=== PATIENT | female | born 1995 | race Two or more races ===

== ENCOUNTER 2019-09-03 15:56 | Inpatient (IN) | payer SELFPAY ==
[~2019-09-03] VITALS: Ht 165.1 cm; Wt 72.6 kg
[2019-09-03] MEDS ORDERED: DINOPROSTONE 10 MG SUPP.VAG VG ONE (16:30)
[2019-09-03] MEDS ORDERED: 0.9 % SODIUM CHLORIDE 10 ML DISP.SYRIN. IV PRN (16:30)
[2019-09-03] MEDS ORDERED: fentaNYL PF VIAL 100 MCG/2 ML VIAL IV PRN ×2 (16:30)
[2019-09-03] MEDS ORDERED: LIDOCAINE 1% PF 30 ML VIAL. INJ PRN (16:30)
[2019-09-03] MEDS ORDERED: NALBUPHINE 10 MG/ML AMPUL. IV PRN (16:30)
[2019-09-03] MEDS ORDERED: OXYTOCIN 30 UNIT/500 ML PREMIX 500 ML IV PRN ×2 (16:30)
[2019-09-03] MEDS ORDERED: TERBUTALINE 1 MG/ML VIAL. SQ PRN (16:30)
[2019-09-03] MEDS ORDERED: BUTORPHANOL 2 MG/ML VIAL. IV PRN ×2 (16:30)
[2019-09-03] MEDS ORDERED: IBUPROFEN 400 MG TABLET. PO PRN (16:30)
[2019-09-03] MEDS: IV RINGERS,LACTATED 1000ML 1,000 ML IV SCH ×2 (17:16→22:26)
[2019-09-03 17:35] LABS: BASO # 0.1 x10^3/uL (0.0-0.2); BASO % 1 % (0-3); EOS # 0.1 x10^3/uL (0.0-0.7); EOS % 2 % (0-3); HEMATOCRIT 36.1 % (36.0-47.0); HEMOGLOBIN 12.8 g/dL (12.0-15.5); LYMPH # 1.7 x10^3/uL (1.0-4.8); LYMPH % 22 % (24-48); MEAN CORPUSCULAR HEMOGLOBIN 32 pg (25-35); MEAN CORPUSCULAR HGB CONC 35 g/dL (31-37); MEAN CORPUSCULAR VOLUME 90 fL (79-100); MONO # 0.5 x10^3/uL (0.0-1.1); MONO % 6 % (0-9); NEUT # 5.5 x10^3/uL (1.8-7.7); NEUT % 70 % (31-73); PLATELET COUNT 210 x10^3/uL (140-400); RED BLOOD COUNT 4.03 x10^6/uL (3.50-5.40); RED CELL DISTRIBUTION WIDTH 13.7 % (11.5-14.5); WHITE BLOOD COUNT 7.9 x10^3/uL (4.0-11.0)
[2019-09-03 18:23] VITALS: BP 117/81
[2019-09-03] MEDS ORDERED: ZOLPIDEM 5 MG TABLET. PO PRN (21:00)
[2019-09-04] MEDS: NALBUPHINE 10 MG/ML AMPUL. IV PRN ×2 (02:14→05:15)
[2019-09-04] MEDS ORDERED: OXYTOCIN PREMIX 30 UNIT/500 ML NS BAG. IV ONE (05:00)
[2019-09-04] MEDS: IV RINGERS,LACTATED 1000ML 1,000 ML IV SCH (06:10)
[2019-09-04] MEDS ORDERED: ROPIVacaine 0.2% PF 10 ML VIAL. ONE ×2 (07:26→08:00)
[2019-09-04] MEDS ORDERED: ROPIVacaine 0.2% IN 0.9%NACL PF 40 MG/20 ML DISP.SYRIN. EPID PRN (08:00)
[2019-09-04] MEDS ORDERED: ONDANSETRON PF 4 MG/2 ML VIAL. IV PRN (08:00)
[2019-09-04] MEDS ORDERED: IV RINGERS,LACTATED 1000ML 1,000 ML IV SCH (08:00)
[2019-09-04] MEDS ORDERED: ePHEDrine PF IN SALINE 50 MG/10 ML SYRINGE. IV PRN (08:00)
[2019-09-04] MEDS ORDERED: NALOXONE 0.4 MG/ML VIAL. IV PRN (08:00)
[2019-09-04] MEDS ORDERED: L&D EPIDURAL SYRINGE 50 ML EPID PRN (08:00)
[2019-09-04] MEDS ORDERED: fentaNYL PF VIAL 100 MCG/2 ML VIAL EPID PRN (08:00)
--- NOTE | 2019-09-04 08:36 | PDOC1 ---
OB - History Hx of Present Care: Good Care Ultrasounds: Normal mid trimester US Obstetrical Complications: Other (Oligohydramnios) Medical Complications: None Past Family/Social History * Past Medical, Surgical, Family and Obstetric Histories reviewed from chart. Rubella: Immune RPR/VDRL: Negative GBS Status: Negative HBsAG: Negative OB - Chief Complaint & HPI Date of Admission: Date of Admission: Sep 03, 2019 at 15:56 Chief Complaint/History : 2 Para: 1 EGA: 40 Reason for admission: induction of labor (oligohydramnios) Admission Nurse Assessment Rev: Yes OB - Admission Exam Physical Exam Vitals: VS - Last 72 Hours, by Label Date Time Temp Pulse Resp B/P (MAP) Pulse Ox O2 Delivery O2 Flow Rate FiO2 09/04/19 05:15 18 09/04/19 02:14 20 Room Air 09/03/19 18:23 98.0 81 18 117/81 (93) Room Air 98.0 HEENT: Normal Heart: Regular Rate Lungs: Clear Abdomen: Gravid, Non tender, Soft Extremities: Edema Reflexes: Normal Cervical Dilatation: 1cm Effacement: 50% Station: -3 Membranes: Intact Heart Rate: Normal Accelerations: Accelerations Present Decelerations: No decelerations Contractions on Admission: >10 Minutes Apart Intensity: Mild Text A: 40 wks IUP Oligohydramnios P: ADmit cervidil, then pitocin induction. JAMISON BYNUM Jr, MD Sep 04, 2019 08:36
--- NOTE | 2019-09-04 08:38 | PDOC ---
VAGINAL DELIVERY DATE DATE: 09/04/19 TIME: 08:37 : 2 Para: 2 EGA: 40 VAGINAL DELIVERY: VTX VACCUM ASSISTED: No PLACENTA: Spontaneous 08/02 SEX: Male WEIGHT Weight [3285 gm ] Nuchal Cord: No Amniotic Fluid: Clear PAIN: Epidural EPISIOTOMY: No EXTENSION: No EBL 300 ml COMPLICATIONS none CONDITION pt. stable Signs of Intrauterine Infectio: None Shoulder Dystocia: No JAMISON BYNUM Jr, MD Sep 04, 2019 08:38
[2019-09-04] MEDS ORDERED: MMR per PROTOCOL. MC PRN (08:45)
[2019-09-04] MEDS ORDERED: IBUPROFEN 400 MG TABLET. PO PRN (08:45)
[2019-09-04] MEDS ORDERED: ZOLPIDEM 5 MG TABLET. PO PRN (08:45)
[2019-09-04] MEDS ORDERED: SIMETHICONE 80 MG TAB.CHEW PO PRN (08:45)
[2019-09-04] MEDS ORDERED: ACETAMINOPHEN 325 MG TABLET. PO PRN (08:45)
[2019-09-04] MEDS ORDERED: BENZOCAINE 20% TOPICAL AEROSOL SPRAY 57GM CAN. TP PRN (08:45)
[2019-09-04] MEDS ORDERED: diphenhydrAMINE HCL 25 MG CAPSULE PO PRN (08:45)
[2019-09-04] MEDS ORDERED: MAGNESIUM HYDROXIDE 2,400 MG/30 ML ORAL.SUSP. PO PRN (08:45)
[2019-09-04] MEDS ORDERED: HYDROCORTISONE 1% TOPICAL OINTMENT 30GM TUBE. TP PRN (08:45)
[2019-09-04] MEDS ORDERED: MAG HYDROX/ALUMINUM HYD/SIMETH 30 ML ORAL.SUSP PO PRN (08:45)
[2019-09-04] MEDS ORDERED: 0.9 % SODIUM CHLORIDE 10 ML DISP.SYRIN. IV PRN (08:45)
[2019-09-04] MEDS ORDERED: oxyCODONE/APAP 5/325 1 TAB TABLET PO PRN (08:45)
[2019-09-04] MEDS ORDERED: DOCUSATE SODIUM 100 MG CAPSULE. PO PRN (08:45)
[2019-09-04] MEDS ORDERED: PHENYLEPH/MINERAL OIL/PETROLAT RECTAL OINTMENT TUBE. RC PRN (08:45)
[2019-09-04] MEDS ORDERED: OXYTOCIN 30 UNIT/500 ML PREMIX 500 ML IV PRN (09:00)
[2019-09-04 10:46] VITALS: BP 108/62
[2019-09-04 11:45] VITALS: BP 89/44
[2019-09-04 16:10] VITALS: BP 99/60
[2019-09-04 21:00] VITALS: BP 95/52
[2019-09-05 01:48] VITALS: BP 101/50
[2019-09-05] MEDS ORDERED: FERROUS SULFATE 325 MG TABLET. PO SCH (08:00)
[2019-09-05 08:11] LABS: BASO # 0.1 x10^3/uL (0.0-0.2); BASO % 1 % (0-3); EOS # 0.1 x10^3/uL (0.0-0.7); EOS % 2 % (0-3); HEMOGLOBIN 11.3 g/dL (12.0-15.5); LYMPH # 2.9 x10^3/uL (1.0-4.8); LYMPH % 35 % (24-48); MEAN CORPUSCULAR HEMOGLOBIN 32 pg (25-35); MEAN CORPUSCULAR HGB CONC 35 g/dL (31-37); MEAN CORPUSCULAR VOLUME 91 fL (79-100); MONO # 0.5 x10^3/uL (0.0-1.1); MONO % 6 % (0-9); NEUT # 4.8 x10^3/uL (1.8-7.7); NEUT % 57 % (31-73); PLATELET COUNT 159 x10^3/uL (140-400); RED BLOOD COUNT 3.54 x10^6/uL (3.50-5.40); RED CELL DISTRIBUTION WIDTH 14.2 % (11.5-14.5); WHITE BLOOD COUNT 8.3 x10^3/uL (4.0-11.0)
[2019-09-05 11:00] VITALS: BP 90/41
--- NOTE | 2019-09-05 14:15 | PDOC ---
Provider Note Provider Note Doing well VSS Uterus NTTP FU in AM Vital Sign - Last 24 Hours 09/04/19 09/04/19 09/05/19 09/05/19 16:10 21:00 01:48 11:00 Temp 98.3 98.1 98.1 98.1 98.3 98.1 98.1 98.1 Pulse 64 67 71 76 Resp 18 16 B/P (MAP) 99/60 (73) 95/52 (66) 101/50 (67) 90/41 (57) Pulse Ox 98 98 98 97 O2 Delivery Room Air Room Air Intake and Output 09/04/19 09/04/19 09/05/19 15:00 23:00 07:00 Intake Total 120 ml 240 ml Balance 120 ml 240 ml CBC - BMP 09/05/19 07:22 SEFERINO JEREZ MD Sep 05, 2019 14:15
[2019-09-05 17:25] VITALS: BP 111/75
[2019-09-05 19:30] VITALS: BP_SYST 103; BP_SYST 110; BP_DIAS 57; BP_DIAS 64
[2019-09-06 05:00] VITALS: BP 101/57
[2019-09-06 08:54] VITALS: BP 101/63
--- NOTE | 2019-09-06 09:43 | PDOC3 ---
OB DISCHARGE SUMMARY DATE OF ADMISSION: 09/04/19 DATE OF DISCHARGE: 09/06/19 REASON FOR ADMISSION: Onset of labor INTRAPARTUM PROCEDURES: Spontanous Vag Deliv DISCHARGE DIAGNOSIS: Term Delivered DISCHARGE INFORMATION: Activity (ad bob), Diet (regular), Instructions (pelvic rest x 6 wks) HOSPITAL COURSE Term gestation delivered vaginally without complications. JAMISON BYNUM Jr, MD Sep 06, 2019 09:43
[2019-09-06] MEDS ORDERED: IBUP-1027 PO (09:44)
--- NOTE | 2019-09-06 09:45 | DISCH ---
DISCHARGE INSTRUCTIONS Condition on Discharge Condition on Discharge: Stable Activity After Discharge Activity Instructions for Disc: Activity as tolerated Lifting Instructions after Dis: No heavy lifting Driving Instructions after Dis: Do not drive today Diet after Discharge Diet after Discharge: Regular Contacting the DRDyllan after DC Call your doctor for: Concerns you may have Follow-Up Follow up with: Ayah in 6 wks JAMISON BYNUM Jr, MD Sep 06, 2019 09:45
[2019-09-06] MEDS ORDERED: FLU VAX QS 2019-20 (36MOS+)/PF 0.5 ML SYRINGE. VAX IM ONE (10:00)
[2019-09-06 16:15] VITALS: BP 124/81
== END 2019-09-06 16:15 | disposition home or self-care (01) | DRG 807 ==
LOC: 3 SO LND 15:56 → 3 NORTH 09-04 10:43
PROVIDERS: ADMIT Obstetrics & Gynecology; ATTEND Obstetrics & Gynecology
PROC: 10E0XZZ Delivery of Products of Conception, External Approach (ICD-10-PCS; principal; 2019-09-04)
PROC: 3E0R3BZ Introduction of Anesthetic Agent into Spinal Canal, Percutaneous Approach (ICD-10-PCS; 2019-09-04)
PROC: 00HU33Z Insertion of Infusion Device into Spinal Canal, Percutaneous Approach (ICD-10-PCS; 2019-09-04)
DX: O41.03X0 Oligohydramnios, third trimester, not applicable or unspecified (principal); Z37.0 Single live birth; Z3A.40 40 weeks gestation of pregnancy
CPT/HCPCS: 36415; 85025; 86592; 86850; 86900; 86901; J2300; J2590; J2795; J7120; G0378